=== PATIENT | male | born 1960 | race Caucasian/White ===

== ENCOUNTER 2022-04-28 13:35 | Emergency (ER) | payer OTHER, BC ==
[2022-04-28] MEDS ORDERED: Boostrix 0.5 ML (Tdap) VIAL (>/=7 yrs of age) ONE (13:48)
== END 2022-04-28 14:42 | disposition home or self-care (01) ==
LOC: BURERS 13:35
DX: S61.412A Laceration without foreign body of left hand, initial encounter (principal); E78.5 Hyperlipidemia, unspecified; Z23 Encounter for immunization; W54.0XXA Bitten by dog, initial encounter
CPT/HCPCS: 90471; 90715